=== PATIENT | male | born 1950 | race Caucasian/White ===

== ENCOUNTER 2019-03-04 06:11 | Inpatient (IN) | payer MEDICARE, MEDICAID ==
[~2019-03-04] VITALS: Ht 167.6 cm; Wt 71.7 kg
[~2019-03-04 06:11] MED LIST: ASA81 PO; INSU100V SQ; INSU100V11 SQ; NIFE60TA83 PO; SIMV10TA2 PO; SSNOVOLOG SUBCUT; SYN50 PO
[2019-03-04] MEDS ORDERED: ALVIMOPAN 12 MG CAPSULE PO ONE ×2 (06:59→08:00)
[2019-03-04 07:37] LABS: CALCIUM 8.6 mg/dL (8.4-11.0); CREATININE 4.74 mg/dL (0.55-1.30); POTASSIUM 3.8 mmol/L (3.5-5.1)
[2019-03-04] MEDS ORDERED: NS IRRIG SOLN 1000 ML IR ONE (08:00)
[2019-03-04] MEDS ORDERED: cefOXitin SODIUM 2 GM/VIAL (MEFOXIN) IV ONE (08:00)
[2019-03-04] MEDS ORDERED: EPINEPHrine 1 MG/ML AMP IV ONE (08:00)
[2019-03-04] MEDS ORDERED: BUPIVACAINE LIPOSOME/PF 266 MG/20 ML VIAL INFIL ONE ×2 (08:00→11:01)
[2019-03-04] MEDS ORDERED: ONDANSETRON HCL 4 MG/2 ML VIAL IVP ONE (08:00)
[2019-03-04] MEDS ORDERED: cefOXitin SODIUM 2 GM in D5W 100 ML IV SCH (08:00)
[2019-03-04] MEDS ORDERED: MORPHINE SULFATE 10MG/10ML PF AMP EP ONE (08:00)
[2019-03-04] MEDS ORDERED: MIDAZOLAM HCL 5 MG/5 ML VIAL IVP ONE (08:00)
[2019-03-04] MEDS ORDERED: PROPOFOL 200MG/ 20ML VIAL (DIPRIVAN) IV ONE (08:00)
[2019-03-04] MEDS ORDERED: SEVOFLURANE 15 MIN GAS INH ONE (08:00)
[2019-03-04] MEDS ORDERED: BUPIVACAINE /DEX PF 0.75% SPINAL 2 ML AMP INJ ONE (08:00)
[2019-03-04] MEDS ORDERED: 0.45% NACL 1,000 ML BAG IV ONE (08:00)
[2019-03-04] MEDS ORDERED: NS 1000 ML IV.SOLN IV ONE (08:00)
[2019-03-04] MEDS ORDERED: 0.45% NACL 1,000 ML IV SCH (09:57)
[2019-03-04] MEDS ORDERED: MORPHINE 4 MG/ML INJ. SYRINGE IVP PRN ×3 (10:00)
[2019-03-04] MEDS ORDERED: MORPHINE SULFATE 10MG/10ML PF AMP SP SCH (10:00)
[2019-03-04] MEDS ORDERED: KETOROLAC TROMETHAMINE 60 MG/2 ML VIAL IM PRN (10:00)
[2019-03-04] MEDS ORDERED: ONDANSETRON HCL 4 MG/2 ML VIAL IVP PRN ×2 (10:00)
[2019-03-04] MEDS ORDERED: NALOXONE HCL 0.4 MG/ML AMP (NARCAN) IVP PRN (10:00)
[2019-03-04] MEDS ORDERED: DIPHENHYDRAMINE INJ 50 MG/ML VIAL IM PRN (10:00)
[2019-03-04] MEDS ORDERED: D5/0.45 NS 1,000 ML IV SCH (11:21)
[2019-03-04] MEDS ORDERED: HYDROmorphone 1 MG INJ. 1 MG/ML AMPUL IVP PRN (11:30)
[2019-03-04] MEDS ORDERED: ACETAMINOPHEN 325 MG TABLET PO PRN (11:30)
[2019-03-04 12:03] LABS: HEMATOCRIT 33.7 % (36-54); HEMOGLOBIN 11.1 g/dL (14.0-18.0)
[2019-03-04 12:09] LABS: CALCIUM 7.9 mg/dL (8.4-11.0); CREATININE 5.05 mg/dL (0.55-1.30); POTASSIUM 3.5 mmol/L (3.5-5.1)
[2019-03-04 12:25] VITALS: BP_SYST 150
[2019-03-04 12:54] VITALS: BP_SYST 150
[2019-03-04 14:10] VITALS: BP_SYST 147
[2019-03-04] MEDS: ONDANSETRON HCL 4 MG/2 ML VIAL IVP PRN (19:42)
[2019-03-04 19:46] VITALS: BP_SYST 150
[2019-03-04] MEDS ORDERED: hydrALAZINE HCL 25 MG TABLET PO PRN (20:15)
[2019-03-04] MEDS: cefOXitin SODIUM 2 GM in D5W 100 ML IV SCH (21:13)
[2019-03-04] MEDS: FAMOTIDINE PF 20 MG/2 ML VIAL IVP SCH (21:13)
[2019-03-04] MEDS: 0.45% NACL 1,000 ML IV SCH (21:14)
[2019-03-04] MEDS: INSULIN REGULAR, HUMAN 100 UNITS/ML, 10 ML VIAL (novoLIN R) SUBCUT PRN (21:28)
[2019-03-04] MEDS ORDERED: DEXTROSE 50% JECT 50 ML DISP.SYRIN IVP PRN (21:45)
[2019-03-05] VITALS: BP_SYST 143
[2019-03-05] MEDS: INSULIN REGULAR, HUMAN 100 UNITS/ML, 10 ML VIAL (novoLIN R) SUBCUT PRN (06:36)
[2019-03-05 06:46] LABS: BASOPHILS % (AUTO) 0.1 % (0.0-2.0); HEMATOCRIT 34.4 % (36-54); HEMOGLOBIN 11.2 g/dL (14.0-18.0); LYMPHOCYTES # (AUTO) 0.7 K/uL (1.0-5.5); MEAN CORPUSCULAR HEMOGLOBIN 29 pg (27-31); MEAN CORPUSCULAR HGB CONC 33 % (32-36); MEAN CORPUSCULAR VOLUME 89 fL (79.0-98.0); MONOCYTES # (AUTO) 0.9 K/uL (0.0-1.0); MONOCYTES % (AUTO) 6.6 % (1.7-9.3); NEUTROPHILS # (AUTO) 11.5 K/uL (1.8-7.7); NEUTROPHILS % (AUTO) 88.3 % (40.0-70.0); PLATELET COUNT (AUTO) 109 K/uL (130-430); RED BLOOD CELL COUNT(AUTO) 3.85 MIL/uL (4.2-6.2); RED CELL DISTRIBUTION WIDTH 14.3 % (9.0-15.0)
[2019-03-05 07:07] LABS: ALBUMIN 3.3 g/dL (3.4-4.8); CALCIUM 8.3 mg/dL (8.4-11.0); CREATININE 6.61 mg/dL (0.55-1.30); POTASSIUM 4.3 mmol/L (3.5-5.1); TOTAL BILIRUBIN 0.4 mg/dL (0.0-1.0)
[2019-03-05 08:04] VITALS: BP_SYST 141
[2019-03-05] MEDS: FAMOTIDINE PF 20 MG/2 ML VIAL IVP SCH ×2 (08:23→20:41)
[2019-03-05] MEDS: cefOXitin SODIUM 2 GM in D5W 100 ML IV SCH (08:24)
[2019-03-05] MEDS: 0.45% NACL 1,000 ML IV SCH (10:36)
[2019-03-05 12:33] VITALS: BP_SYST 143
[2019-03-05 16:45] VITALS: BP_SYST 149
[2019-03-05 20:34] VITALS: BP_SYST 141
[2019-03-05] MEDS: HYDROcodone/ACETAMIN 5-325 MG TAB (NORCO/ VICODIN) PO PRN (20:42)
[2019-03-05] MEDS: D5/0.45 NS 1,000 ML IV SCH (21:57)
[2019-03-06] MEDS: HYDROcodone/ACETAMIN 5-325 MG TAB (NORCO/ VICODIN) PO PRN ×3 (04:16→17:53)
[2019-03-06] MEDS: INSULIN REGULAR, HUMAN 100 UNITS/ML, 10 ML VIAL (novoLIN R) SUBCUT PRN ×4 (06:22→23:24)
[2019-03-06 06:36] LABS: BASOPHILS % (AUTO) 0.2 % (0.0-2.0); EOSINOPHILS % (AUTO) 0.6 % (0.0-4.0); HEMATOCRIT 34.7 % (36-54); HEMOGLOBIN 11.5 g/dL (14.0-18.0); LYMPHOCYTES # (AUTO) 0.8 K/uL (1.0-5.5); LYMPHOCYTES % (AUTO) 9.4 % (20.5-51.5); MEAN CORPUSCULAR HEMOGLOBIN 30 pg (27-31); MEAN CORPUSCULAR HGB CONC 33 % (32-36); MEAN CORPUSCULAR VOLUME 90 fL (79.0-98.0); MONOCYTES # (AUTO) 0.6 K/uL (0.0-1.0); MONOCYTES % (AUTO) 6.7 % (1.7-9.3); NEUTROPHILS # (AUTO) 7.2 K/uL (1.8-7.7); NEUTROPHILS % (AUTO) 83.1 % (40.0-70.0); PLATELET COUNT (AUTO) 102 K/uL (130-430); RED BLOOD CELL COUNT(AUTO) 3.86 MIL/uL (4.2-6.2); RED CELL DISTRIBUTION WIDTH 14.3 % (9.0-15.0); WHITE BLOOD COUNT (AUTO) 8.6 K/uL (4.8-10.8)
[2019-03-06 07:06] LABS: ALBUMIN 2.9 g/dL (3.4-4.8); CALCIUM 8.2 mg/dL (8.4-11.0); POTASSIUM 3.5 mmol/L (3.5-5.1); TOTAL BILIRUBIN 0.5 mg/dL (0.0-1.0)
[2019-03-06 07:38] LABS: CREATININE 7.52 mg/dL (0.55-1.30)
[2019-03-06 07:55] VITALS: BP_SYST 165
[2019-03-06] MEDS: FAMOTIDINE PF 20 MG/2 ML VIAL IVP SCH ×2 (08:30→23:13)
[2019-03-06] MEDS: ONDANSETRON HCL 4 MG/2 ML VIAL IVP PRN ×2 (08:35→18:08)
[2019-03-06] MEDS: D5/0.45 NS 1,000 ML IV SCH (10:39)
[2019-03-06 12:47] VITALS: BP_SYST 170
[2019-03-06] MEDS ORDERED: hydrALAZINE HCL 20 MG/ML VIAL ONE (13:59)
[2019-03-06 16:04] VITALS: BP_SYST 157
[2019-03-06] MEDS: hydrALAZINE HCL 20 MG/ML VIAL IVP PRN ×2 (17:46→23:35)
[2019-03-06 19:00] VITALS: BP_SYST 155
[2019-03-06 20:00] VITALS: BP_SYST 155
[2019-03-06 23:00] VITALS: BP_SYST 175
[2019-03-07] MEDS: HYDROcodone/ACETAMIN 5-325 MG TAB (NORCO/ VICODIN) PO PRN ×2 (03:28→13:21)
[2019-03-07] MEDS: D5/0.45 NS 1,000 ML IV SCH (06:08)
[2019-03-07] MEDS: FAMOTIDINE PF 20 MG/2 ML VIAL IVP SCH ×2 (08:42→20:59)
[2019-03-07 08:50] VITALS: BP_SYST 173
[2019-03-07] MEDS: hydrALAZINE HCL 20 MG/ML VIAL IVP PRN (08:51)
[2019-03-07] MEDS: INSULIN REGULAR, HUMAN 100 UNITS/ML, 10 ML VIAL (novoLIN R) SUBCUT PRN ×3 (11:36→21:04)
[2019-03-07 12:44] VITALS: BP_SYST 154
[2019-03-07 16:30] VITALS: BP_SYST 157
[2019-03-07 20:15] VITALS: BP_SYST 157
[2019-03-08] VITALS (8 sets, daily range): BP systolic 140–193
[2019-03-08] MEDS: D5/0.45 NS 1,000 ML IV SCH (06:17)
[2019-03-08] MEDS: FAMOTIDINE PF 20 MG/2 ML VIAL IVP SCH ×2 (08:10→20:29)
[2019-03-08] MEDS: INSULIN REGULAR, HUMAN 100 UNITS/ML, 10 ML VIAL (novoLIN R) SUBCUT PRN ×3 (11:42→21:36)
[2019-03-08] MEDS ORDERED: ASPIRIN 81 MG TAB.CHEW PO ONE (14:30)
[2019-03-08] MEDS ORDERED: NIFEDIPINE 30 MG TAB.ER.24 PO ONE (14:45)
[2019-03-08] MEDS ORDERED: SIMVASTATIN 10 MG TABLET PO SCH (21:00)
[2019-03-09] MEDS: HYDROcodone/ACETAMIN 5-325 MG TAB (NORCO/ VICODIN) PO PRN (00:56)
[2019-03-09 02:36] VITALS: BP_SYST 121
[2019-03-09] MEDS: D5/0.45 NS 1,000 ML IV SCH (06:20)
[2019-03-09] MEDS: INSULIN REGULAR, HUMAN 100 UNITS/ML, 10 ML VIAL (novoLIN R) SUBCUT PRN ×2 (06:50→10:59)
[2019-03-09] MEDS ORDERED: LEVOTHYROXINE SODIUM 0.05 MG TABLET PO SCH (07:00)
[2019-03-09 08:00] VITALS: BP_SYST 131
[2019-03-09] MEDS: FAMOTIDINE PF 20 MG/2 ML VIAL IVP SCH (08:18)
[2019-03-09] MEDS ORDERED: NIFEDIPINE 30 MG TAB.ER.24 PO SCH (09:00)
[2019-03-09] MEDS ORDERED: ASPIRIN 81 MG TAB.CHEW PO SCH (09:00)
[2019-03-09 09:01] VITALS: BP_SYST 131
[2019-03-09 12:29] VITALS: BP_SYST 142
== END 2019-03-09 12:10 | disposition home or self-care (01) | DRG 329 ==
LOC: SMU 06:11 → STU 12:13 → SMU 03-05 10:38
PROVIDERS: ADMIT Colon & Rectal Surgery; ATTEND Colon & Rectal Surgery
PROC: 0DTN4ZZ Resection of Sigmoid Colon, Percutaneous Endoscopic Approach (ICD-10-PCS; 2019-03-04)
PROC: 0DJD8ZZ Inspection of Lower Intestinal Tract, Via Natural or Artificial Opening Endoscopic (ICD-10-PCS; principal; 2019-03-04 07:30)
PROC: 5A1D70Z Performance of Urinary Filtration, Intermittent, Less than 6 Hours Per Day (ICD-10-PCS; 2019-03-05)
PROC: 5A1D70Z Performance of Urinary Filtration, Intermittent, Less than 6 Hours Per Day (ICD-10-PCS; 2019-03-06)
PROC: 5A1D70Z Performance of Urinary Filtration, Intermittent, Less than 6 Hours Per Day (ICD-10-PCS; 2019-03-08)
PROC: 5A1D70Z Performance of Urinary Filtration, Intermittent, Less than 6 Hours Per Day (ICD-10-PCS; 2019-03-09)
DX: C20 Malignant neoplasm of rectum (principal); N18.6 End stage renal disease; I12.0 Hypertensive chronic kidney disease with stage 5 chronic kidney disease or end stage renal disease; E87.1 Hypo-osmolality and hyponatremia; E11.22 Type 2 diabetes mellitus with diabetic chronic kidney disease; D63.8 Anemia in other chronic diseases classified elsewhere; Z99.2 Dependence on renal dialysis; Z79.4 Long term (current) use of insulin; Z79.899 Other long term (current) drug therapy
CPT/HCPCS: 36415; 80048; 80053; 82962; 85018-TC; 85025; 87081; 88307; 88309; 90935; 90937; 97110-GP; 97116-GP; 97530-GP; C1727; C9290; G0378; J0171; J0360; J0694; J1815; J2250; J2274; J2405; J2704; J3490; J7030; J7060